=== PATIENT | male | born 1980 | race Caucasian/White ===

== ENCOUNTER 2024-04-02 06:11 | Emergency (ER) | payer SELFPAY ==
[2024-04-02 06:16] VITALS: BP 173/121
[2024-04-02 06:55] VITALS: BMI 23.4
--- NOTE | 2024-04-02 08:52 | ED.GENMED ---
History of Present Illness
General
Chief Complaint: Alcohol Problem
Source: patient
Exam Limitations: none
Time Seen by Provider: 04/02/24 07:55
Nursing documentation reviewed up to this point in time: agreed with
History of Present Illness
History of Present Illness:
43-year-old male with a past medical history of alcohol use, hypertension who presents to the emergency room for evaluation of alcohol withdrawal symptoms. Patient reports that he has history of regular heavy alcohol use drinks about a bottle of
liquor a day. He says that he has previously had success with stopping drinking most recently after getting his job however recent stresses at work have caused him to drink again. His last drink was around 8 PM last night. He says that he wishes
to stop drinking alcohol but his is starting to experience withdrawal symptoms and so he came to the ER. He describes generalized achiness, feeling very shaky and unsteady. Reports mild headache and anxiety. Reports diaphoresis. He says he has
some intermittent nausea and dry heaving. He denies any history of seizures or DTs. He denies any drug use.
Past History
Past History
ED Past Medical History: Psychiatric (Anxiety) and Other (Palpitations)
Social History
Tobacco: Smoker
Alcohol: Occasional
Review of Systems
Review of Systems
All Other Systems: ROS reviewed and negative except as documented in HPI and ROS
Constitutional: Reports fatigue; Denies fever
Respiratory: Denies cough or trouble breathing
Cardiac: Denies chest pain or palpitations
ABD/GI: Reports nausea (With dry heaves); Denies abdominal pain, vomiting or diarrhea
: Denies flank pain
Musculoskeletal: Reports muscle pain; Denies neck pain or back pain
Neurological: Reports headache
Psychiatric: Reports anxiety; Denies suicidal or hallucinations
Phy Exam
Physical Exam
Physical Exam:
General: Awake, alert, oriented x3
Head: Normocephalic, atraumatic
Eyes: Conjunctiva normal, EOMI, pupils 4 mm and reactive to light bilaterally
Throat: Airway intact, handling secretions
Neck: Trachea midline, supple without meningismus
Lungs: Clear to auscultation bilaterally, no wheezing, rales, rhonchi
Heart: Regular rate and rhythm, no murmurs, gallops, or rubs
Abd: Soft, non distended, nontender
Neuro: Cranial nerves grossly intact, speech fluid; patient is tremulous
Skin: Moist to the touch
Extremities: No edema in extremities, equal pulses in all extremities
Psych: Anxious mood, normal affect
Scores
Heart Failure Risk
Heart Failure Risk Score: Not Applicable
Heart Score for Chest Pain Patients
STEMI patient?: Not applicable
Withdrawal Assessment of Alcohol
Withdrawal Assessment Completed?: Yes
Nausea and Vomiting: Intermittent nausea with dry heaves
Tactile Disturbances: None
Tremor: Moderate, with patient's arms extended
Auditory Disturbances: Not present
Paroxysmal Sweats: Beads of sweat obvious on forehead
Visual Disturbances: Not present
Anxiety: Mild anxiety
Headache, Fullness in Head: Not present
Agitation: Normal activity
Orientation and clouding of sensorium: Oriented and can do serial additions
Total CIWA Score: 13
Alcohol Withdrawal Medication Recommendation: Equal to MSAS Score 5-7. Lorazepam 1mg IV or PO NOW & re-assess q2hrs
Course
Orders/Labs/Results
Orders:
Orders
04/02/24 08:53
Lorazepam [Ativan] 1 mg PO NOW STA
04/02/24 08:58
Alcohol Urgent
Complete Blood Count/With Diff Urgent
Comprehensive Metabolic Panel Urgent
Drug Screen, Urine [Urine Drug Abuse Screen] Urgent
Date Specimen was Collected: 04/02/24
Time Specimen was Collected: 08:54
Abnormal Lab Results
04/02/24
08:58
RBC 4.51 L 10^6/uL
(4.70-6.10)
MCH 32.8 H pg
(27.0-31.0)
Abs Immat Gran (auto) 0.1 H 10^3/uL
(0-0.05)
Absolute Neuts (auto) 8.7 H 10^3/uL
(1.4-6.5)
Absolute Lymphs (auto) 1.0 L 10^3/uL
(1.2-3.4)
Immature Gran % 0.6 H %
(0-0.5)
Neutrophils % 83.7 H %
(42.2-75.2)
Lymphocytes % 9.2 L %
(20.5-51.1)
Sodium 132 L mmol/L
(135-145)
Carbon Dioxide 21 L mmol/L
(22-30)
AST 82 H U/L
(17-59)
U Marijuana (THC) Screen Positive H
(Negative)
04/02/24 08:58
04/02/24 08:58
Vital Signs
Initial and Last Documented VS:
Initial Vital Signs
Pulse Resp BP Pulse Ox
74 19 173/121 97
04/02/24 06:16 04/02/24 06:16 04/02/24 06:16 04/02/24 06:16
Last Documented Vital Signs
Pulse Resp BP Pulse Ox
74 19 173/121 97
04/02/24 06:16 04/02/24 06:16 04/02/24 06:16 04/02/24 06:16
MDM/Problems Addressed
Differential Diagnosis Includes:
Alcohol withdrawal
MDM/Problems Addressed:
43-year-old male presents with his typical alcohol withdrawal symptoms�he says that he wishes to stop drinking alcohol. Last drink was 8 PM. He says he has had success with outpatient symptom triggered withdrawal treatment in the past. Call
placed to cares to speak with patient regarding treatment options including inpatient and outpatient. Patient is alcohol withdrawal score is as documented above. Appears to be in mild to moderate withdrawal. Will plan to treat with p.o. Ativan.
Check screening labs and alcohol level, UDS. Monitor and reassess after the above.
1 hour after treatment with p.o. Ativan patient says symptoms have significantly improved. Blood pressure improved. Heart rate normal. No longer has a visible tremor, skin is dry. He still feels mildly anxious but he says greatly improved. No
longer nauseous no vomiting. Only mild headache. CIWA score currently 6. He does not wish to be treated inpatient for withdrawal and I think he is a reasonable candidate for outpatient management of alcohol withdrawal. He says he has had success
with benzodiazepine taper in the past�can try low-dose diazepam taper. We spoke at length about instructions for taper and I explained that if he feels his withdrawal symptoms are severe he should return immediately to the emergency room. I did
contact [facility] and they performed assessment at bedside, patient has no interest in inpatient care and feels very comfortable with outpatient resources for alcohol use disorder.
Acute Exacerbation and/or Progression of Chronic Illness:
Acutely hypertensive suspect related to alcohol withdrawal�will treat alcohol withdrawal but hold on emergent antihypertensives for now
Acute Exacerbation and/or Progression of Chronic Illness: HTN
*Pulse Oximetry
Patient hypoxic: no
*Critical Care Note
Total Time (30-74mins, 75-104mins- exclusive of procedures): Not Applicable
Data Reviewed
Review of Other/Old Records Reveals: Other (Queried PDMP-no prescriptions for controlled substances in the past year)
Source: patient and records
Patient Management
Discussion with other providers: Other (discussed with [facility])
ED Attending Note
-
Portions of this chart may have been created with voice recognition software.� Occasional wrong word or��sound alike� substitutions may have occurred due to the inherent limitations of voice recognition software.
Discharge Plan
Departure
Patient Disposition: Home (Routine Discharge)
Date of Disposition: 04/02/24
Time of Disposition: 10:09
Patient with high blood pressure during this ER visit?: Yes
Discharge Problem:
Alcohol withdrawal
Instructions: Alcohol Withdrawal (DC)
Prescriptions:
New
thiamine HCl (vitamin B1) 100 mg tablet
100 mg PO DAILY Qty: 30 0RF
folic acid 1 mg tablet
1 mg PO DAILY Qty: 30 0RF
diazepam 5 mg tablet
See Rx Instructions .ROUTE .COMPLEX Qty: 10 0RF
Rx Instructions:
Day 1: 5 mg every 6 hours; Day 2: 5 mg every 8 hours; Day 3: 5 mg every 12 hours; Day 4: 5 mg at bedtime
No Action
Medical Marijuana
inhalation .ASDIRECTED
Activity Restrictions/Additional Instructions:
Thank you for visiting the Emergency Department at [facility].
1. Please schedule a follow up appointment as directed. Call first thing tomorrow morning to make an appointment.
2. If indicated, please take your medications as instructed and indicated on discharge paperwork.
3. If any of your symptoms do not improve, or persist, or become more severe within 6-12 hours, please return to the emergency department for further care.
4. Please return to the emergency department if you develop a headache, neck pain/stiffness, fever greater than 100.4F, chest pain, shortness of breath, persistent nausea, vomiting, slurred speech, difficulty walking, numbness/tingling, weakness,
signs of infection or any other symptoms that are worrisome to you.
Please call [phone] if you have any questions.
Interventions
Interventions:
*Risk Screen - Suicide Last Done: 04/02/24 06:16
*General Assessment Last Done: 04/02/24 06:55
*Neglect/Abuse Screening Last Done: 04/02/24 06:16
ED- Fall Risk Assessment Last Done: 04/02/24 06:55
*ED COVID-19 Vaccine History Last Done: 04/02/24 06:16
ED- Neurological Assessment Last Done: 04/02/24 06:55
ED-Psychological Assessment Last Done: 04/02/24 06:55
Discharge Date and Time
Print Language: SAMOAN
[2024-04-02] MEDS: ATIVAN 1 MG PO (08:56)
[2024-04-02 09:08] LABS: % Basophils 0.4 % (0-2); % Immature Granulocytes 0.6 % (0-0.5); % Lymphocytes 9.2 % (20.5-51.1); % Monocytes 6.1 % (1.7-9.3); % Neutrophils 83.7 % (42.2-75.2); Absolute Immature Granulocytes 0.1 10^3/uL (0-0.05); Absolute Monocytes 0.6 10^3/uL (0.1-0.6); Absolute Neutrophils 8.7 10^3/uL (1.4-6.5); Hematocrit 42.3 % (39.0-52.0); Hemoglobin 14.8 g/dL (13.0-18.0); Mean Corpuscular Hgb 32.8 pg (27.0-31.0); Mean Corpuscular Volume 93.8 fL (80.0-94.0); Nucleated Red Blood Cells % 0 % (-); Platelet Count 171 10^3/uL (130-400); Red Blood Cell Count 4.51 10^6/uL (4.70-6.10); Red Cell Dist. Width 11.9 % (11.5-14.5); White Blood Cell Count 10.4 10^3/uL (4.8-10.8)
[2024-04-02 09:25] LABS: ALT (SGPT) 47 U/L (0-50); AST (SGOT) 82 U/L (17-59); Albumin 4.7 g/dl (3.5-5.0); Alkaline Phosphatase 98 U/L (38-126); Blood Urea Nitrogen 16 mg/dl (9-20); Calcium 9.5 mg/dl (8.4-10.2); Carbon Dioxide 21 mmol/L (22-30); Chloride 99 mmol/L (98-107); Estimated Creatinine Clearance > 125 ml/min; Glucose 93 mg/dl (70-99); Potassium 4.4 mmol/L (3.5-5.1); Sodium 132 mmol/L (135-145); Total Protein 7.4 g/dl (6.3-8.2); eGFR > 60.00
[2024-04-02 09:32] LABS: Alcohol None Detected
[2024-04-02 09:57] LABS: Amphetamines Negative (Negative); Barbiturates Negative (Negative); Benzodiazepines Negative (Negative); Buprenorphine Negative (Negative); Cocaine Negative (Negative); Marijuana Positive (Negative); Methadone Negative (Negative); Methamphetamines Negative (Negative); Opiates Negative (Negative); Phencyclidine Negative (Negative); Tricyclic Antidepressants Negative (Negative)
[2024-04-02 10:20] VITALS: BP 170/110
== END 2024-04-02 10:30 | disposition home or self-care (01) ==
LOC: EMR 06:11
PROVIDERS: EMERGENCY PHYSICIAN Emergency Medicine
DX: F10.939 Alcohol use, unspecified with withdrawal, unspecified (principal); R51.9 Headache, unspecified; R11.2 Nausea with vomiting, unspecified; R61 Generalized hyperhidrosis; F41.9 Anxiety disorder, unspecified; I10 Essential (primary) hypertension; F17.200 Nicotine dependence, unspecified, uncomplicated
CPT/HCPCS: 99283; 80053; 80306; 82077; 85025